=== PATIENT | male | born 1945 | race Caucasian/White ===

== ENCOUNTER 2020-11-17 20:03 | Emergency (ER) | payer BC, MEDICARE ==
[2020-11-17] MEDS ORDERED: Hydrochlorothiazide 25 MG TAB PO SCH (21:00)
== END 2020-11-17 21:15 | disposition home or self-care (01) ==
LOC: ERS 20:03
DX: I10 Essential (primary) hypertension (principal); Z79.899 Other long term (current) drug therapy
CPT/HCPCS: 99283

== ENCOUNTER 2020-11-19 09:03 | Inpatient (IN) | payer MEDICARE, BC ==
[2020-11-19] MEDS ORDERED: Aspirin Chewable 81 MG TAB ONE (09:43)
[2020-11-19] MEDS ORDERED: Nitroglycerin 0.4 MG TAB 1 EACH ONE (09:43)
[2020-11-19 10:00] LABS: #Eosinphils 0.1 thou/uL (0.0-0.7); #Lymphocytes 1.2 thou/uL (1.20-3.40); #Monocytes 0.5 thou/uL (0.11-0.59); %Basophils 0.7 % (0.0-1.0); %Eosinophils 1.1 % (0.0-10.0); %Lymphocytes 21.2 % (21.0-51.0); %Monocytes 8.1 % (0.0-10.0); %Neutrophils 68.9 % (42.0-75.0); Hemoglobin 15.2 g/dL (14.0-18.0); Mean Corpuscular HGB CONC 34.3 g/dL (32.0-36.0); Mean Corpuscular Hemoglobin 31.1 pg (27.0-31.0); Mean Corpuscular Volume 90.7 fL (78.0-98.0); Mean Platelet Volume 7.7 fL (7.4-10.4); Platelet Count 218 thou/uL (130-400); RBC Distribution Width 12.1 % (11.5-14.5); White Blood Cell (WBC) Count 5.8 thou/uL (4.8-10.8)
[2020-11-19 10:25] LABS: ALT (SGPT) 33 U/L (8-55); AST (SGOT) 40 U/L (5-34); Albumin 4.2 g/dL (3.4-4.8); Alkaline Phosphatase 53 U/L (40-110); Anion Gap 11 mmol/L (10-20); BUN (Urea Nitrogen) 12 mg/dL (8.4-25.7); Bilirubin, Total 0.8 mg/dL (0.2-1.2); Calc. Creatinine Clearance 0 mL/min (70-130); Calcium 9.1 mg/dL (7.8-10.44); Carbon Dioxide 25 mmol/L (23-31); Chloride 101 mmol/L (98-107); Globulin 2.8 g/dL (2.4-3.5); Glucose 140 mg/dL (83-110); Lipase 18 U/L (8-78); Potassium 3.3 mmol/L (3.5-5.1); Sodium 134 mmol/L (136-145)
[2020-11-19] MEDS ORDERED: Nitroglycerin 2% Ointment 1 INCH/1 GM Packet ONE (10:49)
[2020-11-19] MEDS ORDERED: Enoxaparin Sodium 100 MG/ML SYRINGE ONE (11:14)
[2020-11-19] MEDS ORDERED: Nitroglycerin 0.4 MG TAB (25 Tab Bottle) SL PRN (11:31)
[2020-11-19] MEDS ORDERED: Aspirin Chewable 81 MG TAB PO SCH (11:45)
[2020-11-19 11:52] LABS: CKMB 13.6 ng/mL (0-6.6)
[2020-11-19] MEDS ORDERED: Potassium Chloride 20 MEQ TAB PO SCH (12:15)
[2020-11-19 12:25] LABS: Hemoglobin A1c 5.4 % (4.0-6.0)
[2020-11-19] MEDS ORDERED: cefTRIAXone\\ROCEPHIN 2 GM VIAL ONE (13:03)
[2020-11-19] MEDS ORDERED: Ondansetron ODT 4 MG TAB SL PRN (14:15)
[2020-11-19] MEDS ORDERED: Ondansetron PF 4 MG/2 ML Vial IVP PRN (14:15)
[2020-11-19 14:46] VITALS: BMI 27.1
[2020-11-19] MEDS ORDERED: Communication Order-Pharmacy FS SCH (17:45)
[2020-11-19 19:58] LABS: SARS-CoV-2 NAA Rapid Test Not Detected (NotDetected)
[2020-11-19] MEDS: Enoxaparin Sodium 100 MG/ML SYRINGE SC SCH (20:37)
[2020-11-19] MEDS: Rosuvastatin 20 MG TAB PO SCH (20:37)
[2020-11-19] MEDS: Metoprolol Tartrate 25 MG TAB PO SCH (20:37)
[2020-11-20 04:57] LABS: #Eosinphils 0.1 thou/uL (0.0-0.7); #Lymphocytes 1.5 thou/uL (1.20-3.40); #Monocytes 0.9 thou/uL (0.11-0.59); #Neutrophils 5.2 thou/uL (1.40-6.50); %Basophils 0.3 % (0.0-1.0); %Eosinophils 0.9 % (0.0-10.0); %Lymphocytes 19.3 % (21.0-51.0); %Monocytes 11.2 % (0.0-10.0); %Neutrophils 68.3 % (42.0-75.0); Hemoglobin 14.1 g/dL (14.0-18.0); Mean Corpuscular HGB CONC 32.6 g/dL (32.0-36.0); Mean Corpuscular Hemoglobin 29.4 pg (27.0-31.0); Mean Corpuscular Volume 90.3 fL (78.0-98.0); Mean Platelet Volume 8.4 fL (7.4-10.4); Platelet Count 212 thou/uL (130-400); RBC Distribution Width 12.2 % (11.5-14.5); Red Blood Cell (RBC) Count 4.79 mill/uL (4.70-6.10); White Blood Cell (WBC) Count 7.6 thou/uL (4.8-10.8)
[2020-11-20 04:58] LABS: Platelet Count 207 thou/uL (130-400)
[2020-11-20 05:24] LABS: Anion Gap 15 mmol/L (10-20); BUN (Urea Nitrogen) 13 mg/dL (8.4-25.7); Calc. Creatinine Clearance 90 mL/min (70-130); Calcium 8.8 mg/dL (7.8-10.44); Carbon Dioxide 22 mmol/L (23-31); Chloride 104 mmol/L (98-107); Glucose 105 mg/dL (83-110); Potassium 3.5 mmol/L (3.5-5.1); Sodium 137 mmol/L (136-145)
[2020-11-20 05:32] LABS: Cardiac Risk 3.9 (Less than 4.5)
[2020-11-20] MEDS: Enoxaparin Sodium 100 MG/ML SYRINGE SC SCH (10:06)
[2020-11-20] MEDS: Metoprolol Tartrate 25 MG TAB PO SCH ×2 (10:06→20:38)
[2020-11-20] MEDS: Rosuvastatin 20 MG TAB PO SCH (20:38)
[2020-11-21 04:31] LABS: #Eosinphils 0.1 thou/uL (0.0-0.7); #Monocytes 0.7 thou/uL (0.11-0.59); %Basophils 0.2 % (0.0-1.0); %Eosinophils 1.4 % (0.0-10.0); %Lymphocytes 34.6 % (21.0-51.0); %Monocytes 12.3 % (0.0-10.0); %Neutrophils 51.5 % (42.0-75.0); Hemoglobin 13.8 g/dL (14.0-18.0); Mean Corpuscular HGB CONC 33.9 g/dL (32.0-36.0); Mean Corpuscular Hemoglobin 30.8 pg (27.0-31.0); Mean Corpuscular Volume 90.8 fL (78.0-98.0); Mean Platelet Volume 8.1 fL (7.4-10.4); Platelet Count 185 thou/uL (130-400); RBC Distribution Width 12.3 % (11.5-14.5); Red Blood Cell (RBC) Count 4.48 mill/uL (4.70-6.10); White Blood Cell (WBC) Count 5.8 thou/uL (4.8-10.8)
[2020-11-21 04:54] LABS: Anion Gap 13 mmol/L (10-20); BUN (Urea Nitrogen) 13 mg/dL (8.4-25.7); Calc. Creatinine Clearance 83 mL/min (70-130); Calcium 8.8 mg/dL (7.8-10.44); Carbon Dioxide 26 mmol/L (23-31); Chloride 105 mmol/L (98-107); Glucose 97 mg/dL (83-110); Potassium 3.8 mmol/L (3.5-5.1); Sodium 140 mmol/L (136-145)
[2020-11-21] MEDS: Metoprolol Tartrate 25 MG TAB PO SCH ×2 (05:26→21:22)
[2020-11-21] MEDS ORDERED: Sodium Chloride 0.9% 1,000 ML IV SCH ×2 (06:00→10:09)
[2020-11-21] MEDS ORDERED: Heparin 10,000 UNITS/ 10 ML VIAL ONE (08:21)
[2020-11-21] MEDS ORDERED: Lidocaine 1% (PF) 30 ML VIAL ONE (08:21)
[2020-11-21] MEDS ORDERED: Fentanyl 100 MCG/2 ML VIAL ONE (08:47)
[2020-11-21] MEDS ORDERED: Midazolam HCl 2 mg/2 ml Vial ONE (08:47)
[2020-11-21] MEDS ORDERED: Iopamidol 370 76% 100 ML VIAL ONE (09:06)
[2020-11-21] MEDS ORDERED: Bivalirudin 250 MG VIAL ONE (09:22)
[2020-11-21] MEDS ORDERED: Nitroglycerin 100MG/250ML BOT 250 ML ONE (09:39)
[2020-11-21] MEDS ORDERED: TICAGRELOR 90 MG TABLET ONE (09:39)
[2020-11-21] MEDS ORDERED: Morphine 2 MG/ML VIAL SLOW IVP PRN (10:07)
[2020-11-21] MEDS ORDERED: Morphine 4 MG/ML VIAL SLOW IVP PRN (10:07)
[2020-11-21] MEDS ORDERED: Amlodipine 5 MG TAB PO SCH (16:15)
[2020-11-21] MEDS: TICAGRELOR 90 MG TABLET PO SCH (21:23)
[2020-11-21] MEDS: Rosuvastatin 20 MG TAB PO SCH (21:23)
[2020-11-22 04:27] LABS: #Eosinphils 0.1 thou/uL (0.0-0.7); #Lymphocytes 1.4 thou/uL (1.20-3.40); #Monocytes 0.8 thou/uL (0.11-0.59); #Neutrophils 6.2 thou/uL (1.40-6.50); %Basophils 0.3 % (0.0-1.0); %Eosinophils 0.7 % (0.0-10.0); %Lymphocytes 16.3 % (21.0-51.0); %Monocytes 9.6 % (0.0-10.0); %Neutrophils 73.2 % (42.0-75.0); Mean Corpuscular Hemoglobin 30.8 pg (27.0-31.0); Mean Corpuscular Volume 90.6 fL (78.0-98.0); Platelet Count 209 thou/uL (130-400); RBC Distribution Width 12.2 % (11.5-14.5); Red Blood Cell (RBC) Count 4.54 mill/uL (4.70-6.10); White Blood Cell (WBC) Count 8.5 thou/uL (4.8-10.8)
[2020-11-22 04:51] LABS: ALT (SGPT) 26 U/L (8-55); AST (SGOT) 28 U/L (5-34); Albumin 3.5 g/dL (3.4-4.8); Alkaline Phosphatase 45 U/L (40-110); Anion Gap 12 mmol/L (10-20); BUN (Urea Nitrogen) 12 mg/dL (8.4-25.7); Calc. Creatinine Clearance 87 mL/min (70-130); Calcium 8.6 mg/dL (7.8-10.44); Carbon Dioxide 24 mmol/L (23-31); Chloride 106 mmol/L (98-107); Globulin 2.7 g/dL (2.4-3.5); Glucose 101 mg/dL (83-110); Potassium 4.1 mmol/L (3.5-5.1); Protein, Total 6.2 g/dL (5.8-8.1); Sodium 138 mmol/L (136-145)
[2020-11-22 08:29] VITALS: TEMP 97.1
[2020-11-22] MEDS: Metoprolol Tartrate 25 MG TAB PO SCH (08:33)
[2020-11-22] MEDS: TICAGRELOR 90 MG TABLET PO SCH (08:33)
[2020-11-22] MEDS ORDERED: Amlodipine 5 MG TAB PO SCH (09:00)
[2020-11-22 12:30] VITALS: BP 112/64
== END 2020-11-22 15:06 | disposition home or self-care (01) | DRG 247 ==
LOC: ERS 09:03 → 2NO 11:15
PROVIDERS: ADMIT Internal Medicine; ATTEND Internal Medicine
PROC: 027034Z Dilation of Coronary Artery, One Artery with Drug-eluting Intraluminal Device, Percutaneous Approach (ICD-10-PCS; principal; 2020-11-21)
DX: I21.4 Non-ST elevation (NSTEMI) myocardial infarction (principal); Z20.822 Contact with and (suspected) exposure to COVID-19; I10 Essential (primary) hypertension; E87.6 Hypokalemia; I25.10 Atherosclerotic heart disease of native coronary artery without angina pectoris; Z88.0 Allergy status to penicillin; Z79.899 Other long term (current) drug therapy
CPT/HCPCS: 36415; 71045; 80048; 80053; 80061; 82553; 83036; 83690; 83735; 84484; 85014; 85018; 85025; 85049; 85347; 92928; 93005; 93010; 93306; 96372; 97139; 99152; 99153; 99283; C1874; C9600; J0583; J0696; J1644; J1650; J2001; J2250; J3010; Q9967; U0002

== ENCOUNTER 2025-04-14 13:22 | Outpatient (CLI) | payer MEDICARE | END 2025-04-14 13:23 | disposition home or self-care (01) | LOC: BICMAMMO 13:22 | PROVIDERS: ATTEND Internal Medicine | DX: S22.000D Wedge compression fracture of unspecified thoracic vertebra, subsequent encounter for fracture with routine healing (principal); M85.851 Other specified disorders of bone density and structure, right thigh | CPT/HCPCS: 77080 ==